=== PATIENT | female | born 1965 | race Caucasian/White ===

== ENCOUNTER → 2016-07-02 | Outpatient (CLI) | payer OTHER ==
[~2016-07-02] MED LIST: BACTRIM DS 8001 TAB PO; IBUPROFEN800 MG PO; TOPROL XL50 MG PO
== END ==
LOC: COL.RAD 11:46
DX: M21.751 Unequal limb length (acquired), right femur (principal); M17.0 Bilateral primary osteoarthritis of knee

== ENCOUNTER 2017-04-20 18:21 | Emergency (ER) | payer OTHER ==
[~2017-04-20] VITALS: Ht 167.6 cm; Wt 84.1 kg
[2017-04-20 18:24] VITALS: BP 117/75; TEMP 97.9
[2017-04-20] MEDS ORDERED: VOLTAREN GEL 1%1 TU TP (18:28)
[2017-04-20 19:49] VITALS: PULSE 80
== END 2017-04-20 19:50 | disposition home or self-care (01) ==
LOC: COL.ER 18:21
DX: G89.29 Other chronic pain (principal); M25.562 Pain in left knee; M54.9 Dorsalgia, unspecified; F17.210 Nicotine dependence, cigarettes, uncomplicated; Z90.710 Acquired absence of both cervix and uterus; Z90.49 Acquired absence of other specified parts of digestive tract; Z98.890 Other specified postprocedural states
CPT/HCPCS: J1885; L1830

== ENCOUNTER → 2018-01-21 | Outpatient (CLI) | payer OTHER ==
[~2018-01-21] MED LIST changes: +VOLTAREN GEL 1%1 TU TP
== END ==
LOC: COL.RAD 10:05
DX: Z02.71 Encounter for disability determination (principal); M50.11 Cervical disc disorder with radiculopathy, high cervical region

== ENCOUNTER 2018-04-16 13:06 | Emergency (ER) | payer SELFPAY ==
[~2018-04-16] VITALS: Ht 170.2 cm; Wt 79.5 kg
[2018-04-16 13:17] VITALS: BP 141/74; PULSE 84; TEMP 98.6
[2018-04-16] MEDS ORDERED: NORCO 325 MG-7.1 TAB PO (14:52)
[2018-04-16] MEDS ORDERED: FLEXERIL 1010 MG/TAB PO (14:52)
== END 2018-04-16 15:20 | disposition home or self-care (01) ==
LOC: COL.ER 13:06
DX: S46.211A Strain of muscle, fascia and tendon of other parts of biceps, right arm, initial encounter (principal); F17.210 Nicotine dependence, cigarettes, uncomplicated; Z90.49 Acquired absence of other specified parts of digestive tract; Z90.710 Acquired absence of both cervix and uterus; Z98.890 Other specified postprocedural states; X58.XXXA Exposure to other specified factors, initial encounter
CPT/HCPCS: J1885

== ENCOUNTER 2018-05-17 13:01 | Outpatient (RCR) | payer OTHER ==
[~2018-05-17 13:01] MED LIST changes: +FLEXERIL 1010 MG/TAB PO; +NORCO 325 MG-7.1 TAB PO
[2018-05-20] MEDS ORDERED: PERCOCET 325 MG1 TA2 PO (09:55)
[2018-05-20] MEDS ORDERED: MOBIC15 MG PO (09:56)
[2018-05-20] MEDS ORDERED: COLACE 100100 MG/CAP PO (09:56)
[2018-05-20] MEDS ORDERED: ZOFRAN 4MG T4 MG/TAB PO (09:57)
== END 2018-05-19 16:01 | disposition home or self-care (01) ==
LOC: WSC 13:01
DX: M75.21 Bicipital tendinitis, right shoulder (principal); Z98.890 Other specified postprocedural states

== ENCOUNTER 2018-05-20 05:19 | Day surgery (SDC) | payer MEDICAID ==
[2018-05-20] VITALS (8 sets, daily range): BP systolic 04–125; BP diastolic 43–74; PULSE 64–73; TEMP 97.8–98
[~2018-05-20] VITALS: Ht 170.2 cm; Wt 86.4 kg
--- NOTE | 2018-05-20 09:35 | NUR ---
Patient returns to room 8 per cart and arouses to verbal stimuli. Room air sats 94% and temp 96.4. Folded 4x4 gauze dressings on the right shoulder dry and intact. Sling and swathe on the right arm in place. Fingers warm to touch and +2 right radial pulse. Sons in room. Siderails up x2 and call light in reach. Allowed to rest. Call light in reach. IV fluids infusing. Head of cart elevated 30 degrees.
--- NOTE | 2018-05-20 09:50 | NUR ---
Right arm numb and patient denies pain due to intrascaline blocked placed prior to surgery.
[2018-05-20] MEDS ORDERED: PERCOCET 325 MG1 TA2 PO (09:55)
[2018-05-20] MEDS ORDERED: MOBIC15 MG PO (09:56)
[2018-05-20] MEDS ORDERED: COLACE 100100 MG/CAP PO (09:56)
[2018-05-20] MEDS ORDERED: ZOFRAN 4MG T4 MG/TAB PO (09:57)
--- NOTE | 2018-05-20 10:05 | NUR ---
Room air sats 92% and is resting with eyes closed. Ice on the right shoulder.
--- NOTE | 2018-05-20 10:20 | NUR ---
Continues to rest without further complaints of pain.
--- NOTE | 2018-05-20 10:35 | NUR ---
Right arm remains numb due to block and denies pain. Drinking juice.
--- NOTE | 2018-05-20 11:05 | NUR ---
Assisted up to the bedside commode and is able to void. Transfers with one person assist due to knee and foot discomfort. Sitting on edge of cart drinking juice and eating toast. Sling and swathe maintained on the right upper extremity.
--- NOTE | 2018-05-20 11:49 | NUR ---
IV was discontinued and assisted patient with dressing. Provided scripts and all dismissal instructions given. Provided handout that was provided by Dr. Villalobos from the office for home cares, exercises, and instructions for post-op cares. Given office number for questions and concerns. Right arm remains numb due to intrascaline block and sling and swathe in place. Patient taken to the front door per wheelchair and assisted into vehicle by Sarita CRAWFORD and dismissed to care of son.
== END 2018-05-20 11:49 | disposition home or self-care (01) ==
LOC: SDCO 05:19
DX: M75.121 Complete rotator cuff tear or rupture of right shoulder, not specified as traumatic (principal); S46.211A Strain of muscle, fascia and tendon of other parts of biceps, right arm, initial encounter; Z90.49 Acquired absence of other specified parts of digestive tract; M06.9 Rheumatoid arthritis, unspecified; F17.210 Nicotine dependence, cigarettes, uncomplicated; Z83.3 Family history of diabetes mellitus; J44.9 Chronic obstructive pulmonary disease, unspecified; Z85.41 Personal history of malignant neoplasm of cervix uteri; Z80.9 Family history of malignant neoplasm, unspecified
CPT/HCPCS: A4619; C1713; J0171; J0690; J1170; J1885; J2250; J2405; J2704; J2795; J3010; J7120

== ENCOUNTER 2018-08-23 13:45 | Outpatient (RCR) | payer MEDICAID ==
[~2018-08-23 13:45] MED LIST changes: +COLACE 100100 MG/CAP PO; +MOBIC15 MG PO; +PERCOCET 325 MG1 TA2 PO; +ZOFRAN 4MG T4 MG/TAB PO
== END 2018-09-21 | disposition home or self-care (01) ==
LOC: WSC → WSPT → WSC 13:45
DX: Z47.89 Encounter for other orthopedic aftercare (principal)

== ENCOUNTER 2018-09-09 14:30 | Outpatient (RCR) | payer MEDICAID | END 2018-09-15 09:21 | disposition home or self-care (01) | LOC: WSC 14:30 | DX: Z47.89 Encounter for other orthopedic aftercare (principal); Z98.890 Other specified postprocedural states; M76.72 Peroneal tendinitis, left leg ==

== ENCOUNTER 2018-10-19 12:15 | Outpatient (RCR) | payer MEDICAID | END 2018-11-24 | disposition still patient (30) | LOC: WSPT | DX: M75.41 Impingement syndrome of right shoulder (principal); Z98.890 Other specified postprocedural states ==

== ENCOUNTER 2019-04-27 14:00 | Outpatient (RCR) | payer MEDICAID | END 2019-05-01 16:20 | disposition home or self-care (01) | LOC: WSC 14:00 | DX: M48.02 Spinal stenosis, cervical region (principal); Z98.1 Arthrodesis status ==

== ENCOUNTER 2020-05-22 00:30 | Emergency (ER) | payer MEDICARE ==
[~2020-05-22] VITALS: Ht 165.1 cm; Wt 90.9 kg
[2020-05-22 00:33] VITALS: TEMP 98
[2020-05-22 01:15] LABS: BASO # 0.1 (0.0-0.2); BASO % 0.5 % (0.0-2.0); EOS # 0.1 (0.0-0.7); EOS % 0.8 % (0-4.0); GRAN # 10.5 (1.4-6.5); HEMATOCRIT 41.4 % (37.0-47.0); LYMPH # 1.5 (1.2-3.4); LYMPH % 11.8 % (20.0-51.0); MEAN CELL VOLUME 90 fl (80.0-100.0); MEAN CORPUSCULAR HEMOGLOBIN 30 pg (27.0-31.0); MEAN CORPUSCULAR HGB CONC 34 g/dl (33.0-37.0); MEAN PLATELET VOLUME 10.9 fl (7.4-10.4); MONO # 0.8 (0.1-0.6); MONO % 6.4 % (1.7-9.3); PLATELET COUNT 204 K/mm3 (130-400); REDCELL DISTRIBUTION WIDTH-CV 12.1 % (11.5-14.5)
[2020-05-22 01:18] LABS: PROTHROMBIN TIME 10.6 SECONDS (9.7-12.8)
[2020-05-22 01:19] LABS: ALANINE AMINOTRANSFERASE 30 U/L (4-34); ALBUMIN 4.2 gm/dL (3.5-5.0); ALKALINE PHOSPHATASE 87 U/L (50-136); ANION GAP 7 mmol/L (7-16); AST,SGOT 28 U/L (15-37); BILIRUBIN,TOTAL 0.4 mg/dL (0.0-1.0); BLOOD UREA NITROGEN 17 mg/dL (7-17); CALCIUM 9.2 mg/dL (8.4-10.2); CARBON DIOXIDE 27 mmol/L (22-30); CHLORIDE 103 mmol/L (98-107); CREATININE, serum 0.79 (0.52-1.25); GLUCOSE 109 mg/dL (74-106); LIPASE 65 U/L (23-300); POTASSIUM 4.3 mmol/L (3.4-5.0); SODIUM 137 mmol/L (137-145); TOTAL PROTEIN 7.4 gm/dL (6.4-8.2)
[2020-05-22 01:20] LABS: PARTIAL THROMBOPLASTIN TIME 29.4 SECONDS (26.0-37.0)
[2020-05-22 01:32] LABS: TROPONIN-I < 0.012 ng/mL (0.000-0.035)
[2020-05-22 05:31] LABS: COLLECTION METHOD CLEAN CATCH
[2020-05-22 05:39] LABS: MUCOUS Present /lpf; PH 6 (5-8); SQUAMOUS EPITHELIAL 0-2 /hpf; URINE APPEARANCE Hazy; URINE BACTERIA Rare /hpf; URINE BILIRUBIN Negative (NEGATIVE); URINE BLOOD 2+ (NEGATIVE); URINE COLOR Yellow; URINE GLUCOSE Negative (NEGATIVE); URINE KETONE Negative (NEGATIVE); URINE LEUKOCYTE ESTERASE Negative (NEGATIVE); URINE NITRATE Positive (NEGATIVE); URINE PROTEIN(semi-quant) Negative (NEGATIVE); URINE RBC 0-2 /hpf; URINE UROBILINOGEN Negative (NEGATIVE); URINE WBC 0-2 /hpf
[2020-05-22] MEDS ORDERED: OMNICEF 300MG300 MG PO (06:09)
[2020-05-22 06:14] VITALS: BP 138/80; PULSE 77
== END 2020-05-22 06:17 | disposition home or self-care (01) ==
LOC: COL.ER 00:30
PROVIDERS: Emergency Medicine
DX: N39.0 Urinary tract infection, site not specified (principal); R94.31 Abnormal electrocardiogram [ECG] [EKG]; R07.9 Chest pain, unspecified; M19.90 Unspecified osteoarthritis, unspecified site; I25.10 Atherosclerotic heart disease of native coronary artery without angina pectoris; Z90.710 Acquired absence of both cervix and uterus; Z87.891 Personal history of nicotine dependence
CPT/HCPCS: J0696

== ENCOUNTER 2020-08-26 14:47 | Outpatient (RCR) | payer MEDICARE ==
[~2020-08-26 14:47] MED LIST changes: +OMNICEF 300MG300 MG PO
== END 2020-11-24 | disposition home or self-care (01) ==
LOC: WSC
DX: Z01.818 Encounter for other preprocedural examination (principal); M17.12 Unilateral primary osteoarthritis, left knee

== ENCOUNTER → 2020-12-31 | Outpatient (RCR) | payer MEDICARE | END | disposition still patient (30) | LOC: WSPT → WSC 10-02 10:29 → WSPT 10-11 14:15 → WSC 10-18 14:15 → WSPT 15:00 | DX: M17.12 Unilateral primary osteoarthritis, left knee (principal) ==

== ENCOUNTER 2021-02-07 14:15 | Outpatient (RCR) | payer MEDICARE | END 2021-02-17 09:18 | disposition home or self-care (01) | LOC: WSPT 14:15 | DX: Z47.1 Aftercare following joint replacement surgery (principal); Z96.652 Presence of left artificial knee joint ==

== ENCOUNTER 2021-04-13 19:26 | Emergency (ER) | payer MEDICARE ==
[2021-04-14] MEDS ORDERED: CEFTIN500 MG PO (18:44)
== END 2021-04-13 20:00 | disposition left against medical advice (07) ==
LOC: COL.ER 19:26
DX: R52 Pain, unspecified (principal)

== ENCOUNTER 2023-12-28 14:32 | Outpatient (RCR) | payer MEDICARE ==
[~2023-12-28 14:32] MED LIST changes: +CEFTIN500 MG PO
== END 2024-01-24 | disposition home or self-care (01) ==
LOC: WSPT
DX: M17.11 Unilateral primary osteoarthritis, right knee (principal)